=== PATIENT | female | born 1950 | race Caucasian/White ===

== ENCOUNTER 2016-12-24 01:18 | Emergency (ER) | payer MEDICARE ==
[~2016-12-24] VITALS: Ht 165.1 cm; Wt 65.0 kg
[2016-12-24] MEDS ORDERED: SODIUM CHLORIDE FLUSH 10ML SYR IVF ONE (01:30)
[2016-12-24] MEDS ORDERED: PLEASE ENTER ALLERGIES MC SCH ×2 (01:30)
[2016-12-24] MEDS ORDERED: SODIUM CHLORIDE 0.9% 1,000ML IVBOLUS ONE (01:30)
[2016-12-24] MEDS ORDERED: ONDANSETRON 2MG/ML, 2ML IVPush ONE (01:30)
[2016-12-24] MEDS ORDERED: HYDR-3307 PO (02:02)
[2016-12-24] MEDS ORDERED: LORA-446 PO (02:02)
[2016-12-24] MEDS ORDERED: PRED10TA14 PO (02:02)
[2016-12-24] MEDS ORDERED: ALBU1.25 NEB (02:02)
[2016-12-24 02:08] LABS: HEMATOCRIT 43.3 % (34.6-47.8); HEMOGLOBIN 14.3 g/dL (11.7-16.4); WHITE BLOOD COUNT 7.8 x10^3/uL (3.4-10)
[2016-12-24 02:18] LABS: ASPARTATE AMINO TRANSFERASE 11 U/L (15-37); BLOOD UREA NITROGEN 16 mg/dL (7-18)
[2016-12-24 02:22] LABS: IS PT STATUS REG ER OR PRE ER? YES
[2016-12-24 03:08] VITALS: BP 117/74
== END 2016-12-24 03:40 | disposition home or self-care (01) ==
LOC: EDSEX 01:18 → EDBD 01:18 → ED 02:45
DX: R55 Syncope and collapse (principal); E86.0 Dehydration; E11.9 Type 2 diabetes mellitus without complications; J45.909 Unspecified asthma, uncomplicated
CPT/HCPCS: 36415; 71010; 80053; 80307; 83735; 83880; 84484; 85025; 93005; 96361; 96374; 99285; J2405; J7030